=== PATIENT | male | born 1940 ===

== ENCOUNTER 2019-11-13 14:05 | Inpatient (IN) | payer OTHER, MEDICARE ==
[~2019-11-13] VITALS: Ht 162.6 cm; Wt 63.7 kg
[~2019-11-13 14:05] MED LIST: GLUCOSAMINE S1000 MG PO; PRED1
[2019-11-13 15:33] LABS: BASOPHILS ABSOLUTE AUTO 0.04 K/mm3 (0.00-0.23); BASOPHILS PERCENT AUTO 0 % (0-2); Hematocrit 54.7 % (37.0-53.0); Hemoglobin 17.9 g/dL (13.5-17.5); LYMPHOCYTES ABSOLUTE AUTO 0.23 K/mm3 (0.84-5.20); LYMPHOCYTES PERCENT AUTO 2 % (21-46); MONOCYTES ABSOLUTE AUTO 0.14 K/mm3 (0.16-1.47); MONOCYTES PERCENT AUTO 2 % (4-13); Mean Corpuscular HGB 31.4 pg (26.0-34.0); Mean Corpuscular HGB Conc 32.7 g/dL (31.5-36.5); Mean Corpuscular Volume 96 fL (80-100); Mean Platelet Volume 10.1 fL (9.1-12.4); Platelet Count 271 K/mm3 (150-400); RDW Coefficient Variation 12.9 % (11.7-14.2); White Blood Cell Count 9.64 K/mm3 (4.00-11.30)
[2019-11-13 15:36] LABS: EOSINOPHILS ABSOLUTE AUTO 0.17 K/mm3 (0.00-0.68); EOSINOPHILS PERCENT AUTO 2 % (0-6); IMMATURE GRAN ABSOLUTE AUTO 0.07 K/mm3 (0.00-0.10); IMMATURE GRAN PERCENT AUTO 1 % (0-1); NEUTROPHILS ABSOLUTE AUTO 8.99 K/mm3 (1.96-9.15); NEUTROPHILS PERCENT AUTO 93 % (41-73)
[2019-11-13 15:58] LABS: Alanine Aminotransfer (ALT/SGP 34 U/L (12-78); Albumin, Blood 4.6 g/dL (3.4-5.0); Alk Phos 126 U/L (50-136); Anion Gap 8 mmol/L (6-16); Aspartate Aminotrans (AST/SGOT 25 U/L (12-37); Bilirubin, Total 0.8 mg/dL (0.1-1.0); Blood Urea Nitrogen 18 mg/dL (8-24); CO2, Blood 26 mmol/L (21-32); Chloride, Blood 105 mmol/L (98-108); Globulin, Blood 4.4 g/dL (2.2-4.0); Glomerular Filtration Rate >60 (60-); Glucose, Blood 120 mg/dL (70-99); Magnesium, Blood 2.4 mg/dL (1.6-2.4); Potassium, Blood 3.9 mmol/L (3.5-5.5); Sodium, Blood 139 mmol/L (136-145); Troponin I <0.015 ng/mL (0.000-0.040)
[2019-11-13 18:49] LABS: Adenovirus Not Detected (NOT DETECT); Bordetella pertussis Not Detected (NOT DETECT); Chlamydophila pneumoniae Not Detected (NOT DETECT); Coronavirus 229E Not Detected (NOT DETECT); Coronavirus HKU1 Not Detected (NOT DETECT); Coronavirus NL63 Not Detected (NOT DETECT); Coronavirus OC43 Not Detected (NOT DETECT); Human Metapneumovirus Not Detected (NOT DETECT); Human Rhinovirus/Enterovirus Not Detected (NOT DETECT); Influenza A/2009-H1 Not Detected (NOT DETECT); Influenza A/H1 Not Detected (NOT DETECT); Influenza A/H3 Not Detected (NOT DETECT); Influenza B Not Detected (NOT DETECT); Mycoplasma pneumoniae Not Detected (NOT DETECT); Parainfluenza Virus 1 Not Detected (NOT DETECT); Parainfluenza Virus 2 Not Detected (NOT DETECT); Parainfluenza Virus 3 Not Detected (NOT DETECT); Parainfluenza Virus 4 Not Detected (NOT DETECT); Respiratory Syncytial Virus Not Detected (NOT DETECT)
[2019-11-13] MEDS ORDERED: LOSA50 PO (19:12)
[2019-11-13] MEDS ORDERED: METF500 PO (19:13)
[2019-11-13] MEDS ORDERED: G-FENESIN400 MG PO (19:14)
[2019-11-13] MEDS ORDERED: ATOR80 PO (19:15)
[2019-11-13] MEDS ORDERED: ALBU2.5V5 NEB (19:15)
[2019-11-13] MEDS ORDERED: SYMBICORT 160-4.6 GM INH (19:16)
[2019-11-13] MEDS ORDERED: ALBU90OI INH (19:16)
[2019-11-13] MEDS ORDERED: SPIRIVA RESPIMAT4 G3 INH (19:17)
[2019-11-13] MEDS ORDERED: BASAGLAR K100 UNIT/1 SC (19:18)
[2019-11-13] MEDS ORDERED: NOVOLOG FL100 UNIT/3 SC (19:20)
[2019-11-13] MEDS ORDERED: Hair, Skin & N1 EACH PO (19:20)
[2019-11-13] MEDS ORDERED: MONT10T PO (19:20)
[2019-11-13] MEDS ORDERED: OMALIZUMAB SC (19:21)
[2019-11-13] MEDS ORDERED: ACETADOTE200 MG/1 M NEB (19:25)
--- NOTE | 2019-11-14 00:05 | NUR ---
PT ARRIVED FROM ER VIA STRETCHER; PT SELF TRANSFERED TO BED; DENIES CHEST PAIN; DENIES SOB CURRENTLY; STATES HE FEELS BETTER THAN EARLIER IN ER; VSS; NSR W/ HR 90'S; CALL LIGHT IN REACH; BED IN LOWEST POSITION
[2019-11-14 04:20] LABS: BASOPHILS ABSOLUTE AUTO 0.06 K/mm3 (0.00-0.23); BASOPHILS PERCENT AUTO 0 % (0-2); Hematocrit 40.6 % (37.0-53.0); Hemoglobin 13.4 g/dL (13.5-17.5); LYMPHOCYTES ABSOLUTE AUTO 0.37 K/mm3 (0.84-5.20); LYMPHOCYTES PERCENT AUTO 2 % (21-46); MONOCYTES ABSOLUTE AUTO 0.44 K/mm3 (0.16-1.47); MONOCYTES PERCENT AUTO 3 % (4-13); Mean Corpuscular HGB 31.5 pg (26.0-34.0); Mean Corpuscular Volume 95 fL (80-100); Mean Platelet Volume 10.7 fL (9.1-12.4); Platelet Count 245 K/mm3 (150-400); RDW Coefficient Variation 13.2 % (11.7-14.2); RDW Standard Deviation 46.2 fL (35.1-46.3); Red Blood Cell Count 4.26 M/mm3 (4.30-5.90); White Blood Cell Count 17.19 K/mm3 (4.00-11.30)
[2019-11-14 04:22] LABS: EOSINOPHILS ABSOLUTE AUTO 0.01 K/mm3 (0.00-0.68); EOSINOPHILS PERCENT AUTO 0 % (0-6); IMMATURE GRAN ABSOLUTE AUTO 0.09 K/mm3 (0.00-0.10); IMMATURE GRAN PERCENT AUTO 1 % (0-1); NEUTROPHILS ABSOLUTE AUTO 16.22 K/mm3 (1.96-9.15); NEUTROPHILS PERCENT AUTO 94 % (41-73)
[2019-11-14 04:40] LABS: Bun/Creatinine Ratio 16.1 (12.0-20.0); Calcium, Blood 8.5 mg/dL (8.5-10.1); Creatinine, Blood 1.86 mg/dL (0.60-1.20); Potassium, Blood 3.9 mmol/L (3.5-5.5)
--- NOTE | 2019-11-14 05:21 | NUR ---
SHIFT SUMMARY PT A&O; PLEASANT & COMPLIANT W/ CARE; VSS; DENIES CHEST PAIN; SINUS TACH NOTED ON TELE PER POPULATION HEALTH COACH; INDEPENDENT TO BSC, STAND AND PIVOT DUE TO WORK OF BREATHING; RT AT BEDSIDE MID SHIFT FOR ASSESSMENT, CPT & CPAP PLACEMENT; O2 SATS >93 ON 8L OXYMIZER; NO DISTRESS NOTED; CALL LIGHT IN REACH; BED IN LOWEST POSITION; WILL CONTINUE TO MONITOR CLOSELY UNTIL HAND OFF TO DAY SHIFT RN.
--- NOTE | 2019-11-14 11:50 | NUR ---
Spiritual care visit conducted. Patient talks at length about his years of service in the [employer] and about the Agent [employer] that has effected his breathing and energy level. Patient also talks about his cody including his spiritual journey beginning in the 70s. Patient expresses his concerns about missing the shot that he goes down to [place] to get, that he can't get because he is in the hospital. This "shot" patient says helps with his breathing. I explore patient spiritism beliefs, hear confession, reinforce helpful attitudes and practices and provide therapeutic listening, pastoral industrial relations counselor and prayer. Patient responds well and shows signs of uplifted cody and catharsis. I will continue to remain available to patient and family.
--- NOTE | 2019-11-14 11:58 | NUR ---
Patient is lying in bed and alert. Patient immediately tells me about his cody and his senior analyst market intelligence, [employer] Ion Chaudhari. 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 We discuss how he is processing this and what worked when he went through his prior amputation. Patient tells me about the solid support system that he has with his family, friends and yazidism. Patient shares about his beliefs in regard to suffering and healing. I listen empathically, reinforce helpful attitudes and practices, normalize patient's experience and provide pastoral corrections counselor and prayer. Patient responds well and shows signs of reduced stress. Patient voices appreciation for the visit
[2019-11-14 15:38] LABS: Adenovirus F 40/41 Not Detected (NOT DETECT); Campylobacter Sp Not Detected (NOT DETECT); Cryptosporidium Not Detected (NOT DETECT); Cyclospora Cayetanensis Not Detected (NOT DETECT); E. Coli O157 Not Detected (NOT DETECT); Entamoeba Histolytica Not Detected (NOT DETECT); Enteroaggregative E. coli-EAEC Not Detected (NOT DETECT); Enteropathogenic E. coli-EPEC Not Detected (NOT DETECT); Enterotoxigenic E. coli-ETEC Not Detected (NOT DETECT); Giardia Lamblia Not Detected (NOT DETECT); Plesiomonas Shigelloides Not Detected (NOT DETECT); Salmonella Sp Not Detected (NOT DETECT); Shiga Toxin-prod E. coli-STEC Not Detected (NOT DETECT); Shigella/Enteroin E. coli-EIEC Not Detected (NOT DETECT); Vibrio Cholerae Not Detected (NOT DETECT); Vibrio Sp Not Detected (NOT DETECT); Yersinia Enterocolitica Not Detected (NOT DETECT)
[2019-11-14 15:39] LABS: Astrovirus Not Detected (NOT DETECT); Norovirus GI/GII Not Detected (NOT DETECT); Rotavirus A Not Detected (NOT DETECT); Sapovirus Not Detected (NOT DETECT)
--- NOTE | 2019-11-14 17:53 | NUR ---
SHIFT SUMMARY PT IS ALERT AND ORIENTED. AT BEGINNING OF SHIFT PT WAS ON 8L OXYMIZER, PT HAS BEEN WEANED DOWN THROUGHOUT THE DAY TO 3L OXYMIZER AND MAINTAINS SPO2 >92%. PT REPORTS HIS BREATHING IS EASIER AND IS FEELING BETTER. PT WAS CHANGED TO MEDICAL STATUS WITHOUT TELEMETRY THIS MORNING. PT IS INDEPENDANT IN ROOM. PT C/O DIARRHEA, PCR SENT AND CAME BACK NEGATIVE. CBG'S HAVE BEEN ELEVATED WITH IMPROVEMENT IN THE EVENING. VITALS HAVE BEEN STABLE.
--- NOTE | 2019-11-15 04:02 | NUR ---
ASSUMED CARE OF PATIENT AT 1915. COARSE BREATH SOUNDS HEARD IN BASES OF LUNGS. PATIENT AMBULATES INDEPENDENTLY IN ROOM. HE IS NOT COMPLAINING OF ANY PAIN AND ONLY SLIGHT SOB DURING AMBULATION. WILL CONTINUE TO MONITOR UNTIL END OF SHIFT.
--- NOTE | 2019-11-15 07:23 | NUR ---
ASSUMED CARE: PT SITTING UP IN CHAIR, RT AT BEDSIDE. 3L O2 SATTING MID 90S AT THIS TIME. NO ACUTE NEEDS OR CONCERNS.
[2019-11-15 09:01] LABS: BASOPHILS ABSOLUTE AUTO 0.01 K/mm3 (0.00-0.23); BASOPHILS PERCENT AUTO 0 % (0-2); EOSINOPHILS PERCENT AUTO 0 % (0-6); Hematocrit 39.1 % (37.0-53.0); Hemoglobin 13.3 g/dL (13.5-17.5); IMMATURE GRAN ABSOLUTE AUTO 0.12 K/mm3 (0.00-0.10); IMMATURE GRAN PERCENT AUTO 1 % (0-1); LYMPHOCYTES ABSOLUTE AUTO 0.44 K/mm3 (0.84-5.20); LYMPHOCYTES PERCENT AUTO 2 % (21-46); MONOCYTES ABSOLUTE AUTO 0.69 K/mm3 (0.16-1.47); MONOCYTES PERCENT AUTO 4 % (4-13); Mean Corpuscular HGB 31.9 pg (26.0-34.0); Mean Corpuscular Volume 94 fL (80-100); Mean Platelet Volume 10.7 fL (9.1-12.4); NEUTROPHILS ABSOLUTE AUTO 17.49 K/mm3 (1.96-9.15); NEUTROPHILS PERCENT AUTO 93 % (41-73); Platelet Count 258 K/mm3 (150-400); RDW Coefficient Variation 13.1 % (11.7-14.2); RDW Standard Deviation 45.4 fL (35.1-46.3); Red Blood Cell Count 4.17 M/mm3 (4.30-5.90); White Blood Cell Count 18.75 K/mm3 (4.00-11.30)
[2019-11-15 09:14] LABS: Anion Gap 7 mmol/L (6-16); Blood Urea Nitrogen 42 mg/dL (8-24); Bun/Creatinine Ratio 42.6 (12.0-20.0); CO2, Blood 23 mmol/L (21-32); Calcium, Blood 8.5 mg/dL (8.5-10.1); Chloride, Blood 103 mmol/L (98-108); Creatinine, Blood 0.99 mg/dL (0.60-1.20); Glomerular Filtration Rate >60 (60-); Glucose, Blood 262 mg/dL (70-99); Potassium, Blood 4.3 mmol/L (3.5-5.5); Sodium, Blood 133 mmol/L (136-145)
[2019-11-15] MEDS ORDERED: PRED20 PO (12:47)
--- NOTE | 2019-11-15 13:20 | NUR ---
PT GIVEN DC INSTRUCTIONS, ESPECIALLY NOTED TO TAKE PREDNISONE UNTIL GONE AND TO REST AND TAKE IT EASY OVER THE NEXT FEW DAYS TO ENSURE NO FURTHER EXACERBATIONS. IV'S DC'D WNL. FAMILY AT BEDSIDE. ESCORTED OUT VIA WHEEL CHAIR BY VOLUNTEER
== END 2019-11-15 13:09 | disposition home or self-care (01) | DRG 189 ==
LOC: ER 14:05 → PCU 14:06
PROVIDERS: Emergency Medicine; Hospitalist; Nurse Practitioner Acute Care; Student in an Organized Health Care Education/Training Program; ADMIT Internal Medicine
DX: J96.01 Acute respiratory failure with hypoxia (principal); J45.901 Unspecified asthma with (acute) exacerbation; J44.1 Chronic obstructive pulmonary disease with (acute) exacerbation; Z20.828 Contact with and (suspected) exposure to other viral communicable diseases; E11.9 Type 2 diabetes mellitus without complications; G47.33 Obstructive sleep apnea (adult) (pediatric); I10 Essential (primary) hypertension; E78.5 Hyperlipidemia, unspecified; Z79.4 Long term (current) use of insulin
CPT/HCPCS: 0097U; 0099U; 36415; 71045; 71260; 80048; 80053; 82947; 83735; 84484; 85025; 93005; 93010; 94640; 94644; 94660; 94667; 94668; 94762; 96361; 96365-59; 96366; 96367; 96372; 96372-59; 96375-59; 96376; 99285-25; A9270-GY; G0378; J0696; J1650; J2405; J2930; J3475; J7050; J7120; Q9967

== ENCOUNTER → 2021-09-02 | Outpatient (CLI) | payer OTHER ==
[~2021-09-02] MED LIST changes: +ACETADOTE200 MG/1 M NEB; +ALBU2.5V5 NEB; +ALBU90OI INH; +ATOR80 PO; +BASAGLAR K100 UNIT/1 SC; +BUDE.25 INH; +Cialis20 MG PO; +ERGO50000 PO; +G-FENESIN400 MG PO; +GUAI600T33 PO; +Hair, Skin & N1 EACH PO; +LOSA50 PO; +METAMUCIL POWD575 GM PO; +METF500 PO; +MONT10T PO; +NOVOLOG FL100 UNIT/3 SC; +PRED20 PO; +SPIRIVA RESPIMAT4 G3 INH; +SYMBICORT 160-4.6 GM INH; +XOLAIR150 MG/1 M; +[UNRECOGNIZED DRUG - OTHER] PO
== END | disposition home or self-care (01) ==
LOC: LAB SHORT 13:07 → LAB 13:07
DX: Z08 Encounter for follow-up examination after completed treatment for malignant neoplasm (principal); D22.5 Melanocytic nevi of trunk; D48.5 Neoplasm of uncertain behavior of skin; L08.9 Local infection of the skin and subcutaneous tissue, unspecified; L81.4 Other melanin hyperpigmentation; L85.3 Xerosis cutis; L57.8 Other skin changes due to chronic exposure to nonionizing radiation; L81.8 Other specified disorders of pigmentation; Z85.828 Personal history of other malignant neoplasm of skin
CPT/HCPCS: 87070; 87077; 87147; 87186; 87205

== ENCOUNTER 2022-06-01 11:46 | Day surgery (SDC) | payer OTHER ==
[~2022-06-01] VITALS: Ht 162.6 cm; Wt 67.2 kg
--- NOTE | 2022-06-01 12:10 | NUR ---
06/01/22 1210 Malissa Nichols CALL LIGHT WITHIN REACH. TETRACAIN IN RIGHT EYE AT 1204 AND FREDYETT AT 1205
[2022-06-01] MEDS ORDERED: FASENRA PE30 MG/1 ML SQ (12:16)
== END 2022-06-01 13:56 | disposition home or self-care (01) ==
LOC: ORSCSDS 11:46
PROVIDERS: Ophthalmology
PROC: 08RJ3JZ Replacement of Right Lens with Synthetic Substitute, Percutaneous Approach (ICD-10-PCS; principal; 2022-06-01 13:01)
DX: H25.11 Age-related nuclear cataract, right eye (principal); H52.201 Unspecified astigmatism, right eye; I10 Essential (primary) hypertension; J45.909 Unspecified asthma, uncomplicated; E11.9 Type 2 diabetes mellitus without complications; Z79.84 Long term (current) use of oral hypoglycemic drugs; Z79.899 Other long term (current) drug therapy
CPT/HCPCS: 82947; J2001; J2250; J3010; J3301; J7040; V2632

== ENCOUNTER 2022-06-08 13:59 | Day surgery (SDC) | payer OTHER ==
[~2022-06-08] VITALS: Ht 162.6 cm; Wt 67.3 kg
[~2022-06-08 13:59] MED LIST changes: +FASENRA PE30 MG/1 ML SQ
--- NOTE | 2022-06-08 14:16 | NUR ---
06/08/22 1416 Malissa Nichols CALL LIGHT WITHIN REACH. TETRACAINE IN LEFT EYE AT 1412 PLEDGETT AT 1414
== END 2022-06-08 15:30 | disposition home or self-care (01) ==
LOC: ORSCSDS 13:59
PROVIDERS: Ophthalmology
PROC: 08DK3ZZ Extraction of Left Lens, Percutaneous Approach (ICD-10-PCS; principal; 2022-06-08 15:00)
DX: E11.36 Type 2 diabetes mellitus with diabetic cataract (principal); H25.12 Age-related nuclear cataract, left eye; H52.202 Unspecified astigmatism, left eye; Z96.1 Presence of intraocular lens; J45.909 Unspecified asthma, uncomplicated; Z79.84 Long term (current) use of oral hypoglycemic drugs; Z79.899 Other long term (current) drug therapy
CPT/HCPCS: 82947; J2001; J2250; J3301; J7040; V2632

== ENCOUNTER → 2023-03-24 | Outpatient (CLI) | payer MEDICARE | LOC: LAB 10:06 → LAB SHORT 10:06 | DX: L08.9 Local infection of the skin and subcutaneous tissue, unspecified (principal) | CPT/HCPCS: 87070; 87205 ==

== ENCOUNTER → 2023-05-11 | Outpatient (CLI) | payer MEDICARE | END | disposition home or self-care (01) | LOC: LAB 15:22 → LAB SHORT 15:22 | DX: L08.9 Local infection of the skin and subcutaneous tissue, unspecified (principal) | CPT/HCPCS: 87070; 87205 ==